=== PATIENT | female | born 1965 | race Caucasian/White ===

== ENCOUNTER 2017-11-06 17:09 | Emergency (ER) | payer OTHER ==
[~2017-11-06] VITALS: Ht 172.7 cm; Wt 110.0 kg
[2017-11-06 17:18] VITALS: BP 113/71; PULSE 104; RESP 16; TEMP 102.6
[2017-11-06] MEDS ORDERED: HYDR25TA5 PO (17:59)
[2017-11-06] MEDS ORDERED: BLAC540C PO (17:59)
[2017-11-06] MEDS ORDERED: SERO100T PO (17:59)
[2017-11-06] MEDS ORDERED: VERA200C PO (17:59)
[2017-11-06] MEDS ORDERED: NEXI40CA PO (17:59)
[2017-11-06] MEDS ORDERED: KETOROLAC TROMETHAMINE 30 MG/ML (IVP) VIAL IV PUSH ONE (18:15)
[2017-11-06] MEDS ORDERED: ACETAMINOPHEN 325 MG TAB PO ONE (18:15)
[2017-11-06] MEDS ORDERED: SODIUM CHLOR 0.9% 1000 ML INJ 1,000 ML IV ONE (18:15)
[2017-11-06 18:18] LABS: AUTOMATED NEUTROPHIL # 7.2 TH/MM3 (1.8-7.7); BASOPHIL % 0.4 % (0.0-2.0); EOSINOPHIL % 0.2 % (0.0-4.0); HEMATOCRIT 41.7 % (35.0-46.0); HEMOGLOBIN 14.2 GM/DL (11.6-15.3); LYMPH % 8.5 % (9.0-44.0); LYMPHOCYTE # 0.7 TH/MM3 (1.0-4.8); MEAN CELL VOLUME 90.5 FL (80.0-100.0); MEAN CORPUSCULAR HEMOGLOBIN 30.7 PG (27.0-34.0); MEAN PLATELET VOLUME 7.9 FL (7.0-11.0); MONO % 7.2 % (0.0-8.0); MONOCYTE # 0.6 TH/MM3 (0-0.9); NEUT % 83.7 % (16.0-70.0); PLATELET COUNT 306 TH/MM3 (150-450); RED BLOOD COUNT 4.61 MIL/MM3 (4.00-5.30); RED CELL DISTRIBUTION WIDTH 12.7 % (11.6-17.2); WHITE BLOOD COUNT 8.5 TH/MM3 (4.0-11.0)
--- NOTE | 2017-11-06 18:32 | RADRPT ---
EXAM DATE: 11/06/2017 6:29 PM EDT AGE/SEX: 51 years / Female INDICATIONS: Fever, cough, and shortness of breath. CLINICAL DATA: This is the patient's initial encounter. Patient reports that signs and symptoms have been present for 3 days and indicates a pain score of Nonresponsive. MEDICAL/SURGICAL HISTORY: Hypertension. None. COMPARISON: No prior [place] exams available for comparison. FINDINGS: Subsegmental airspace disease is identified in the right upper lobe. Left lung is clear. Heart and mediastinal structures are unremarkable. Osseous structures are intact. CONCLUSION: Right upper lobe airspace disease. Electronically signed by: Josse Hatch MD 11/06/2017 6:31 PM EDT
[2017-11-06] MEDS ORDERED: LEVOFLOXACIN 500 MG PREMIX INJ 100 ML IV ONE (18:45)
[2017-11-06 18:55] LABS: BICARBONATE 28.6 MEQ/L (21.0-32.0); CALCIUM 8.7 MG/DL (8.5-10.1); CREATININE 0.98 MG/DL (0.50-1.00); MAGNESIUM 1.8 MG/DL (1.5-2.5)
[2017-11-06 18:59] VITALS: TEMP 102.1
[2017-11-06] MEDS ORDERED: LEVA500T33 PO (19:18)
[2017-11-06] MEDS ORDERED: GUAISYP4 PO (19:28)
[2017-11-06 19:32] VITALS: PULSE 90; RESP 18; TEMP 100.9; O2SAT 98
--- NOTE | 2017-11-06 19:34 | PD ---
HPI Chief Complaint: ENT Complaint Time Seen by Provider: 17:37 (Antonio Nguyen) Time Seen by Provider: 17:37 (Manasa Maza DO) Travel History International Travel<30 days: No Contact w/Intl Traveler<30days: No Traveled to known affect area: No (Antonio Nguyen) History of Present Illness HPI 51-year-old female that presents to the ED for evaluation of cold-like symptoms and sore throat. Per patient started on Wednesday. Per patient since today she has been having sore throat, cough and congestion as well as body aches and fever. Per patient the fever and bodies have been getting worse for the past 24 hours. Per patient she is been taking [id number] remedies with some relief. Per patient she continued to have the fever and the symptoms which is what prompted her to come here. She denies any chest pain but states having a lot of congestion and cough. No shortness of breath. No urinary or bowel movement issues. No recent travel. Allergies to azithromycin and sertraline. Has been taking Tylenol for the fever with minimal relief. No abdominal pain. No bowel movement or urinary issues. Per patient she did got in contact with her coworker that was sick with cold-like symptoms and possible a flu. She did not get the flu shot herself. (Antonio Nguyen) PFSH Past Medical History Gastrointestinal Disorders: Yes (GERD) Hypertension: Yes Influenza Vaccination: No ?: Not LMP: post menopause Menopausal: Yes (Antonio Nguyen) Past Surgical History Tonsillectomy: Yes Other Surgery: Yes (breast reduction) (Antonio Nguyen) Social History Alcohol Use: Yes (Occasionally) Tobacco Use: No Substance Use: No (Antonio Nguyen) Allergies-Medications (Allergen,Severity, Reaction): Coded Allergies: sertraline (Verified Allergy, Intermediate, Hives, 11/06/17) azithromycin (Verified Allergy, Unknown, Hives, 11/06/17) Reported Meds & Prescriptions Reported Meds & Active Scripts Active Guaifenesin AC Liq (Guaifenesin-Codeine Liq) 100-10 Mg/5 Ml Syrp 5 Ml PO Q6H PRN Levaquin (Levofloxacin) 500 Mg Tablet 500 Mg PO DAILY 10 Days Reported Black Cohosh (Black Cohosh Extract) 40 Mg Cap 40 Mg PO DAILY Hydrochlorothiazide 25 Mg Tab 25 Mg PO DAILY Nexium (Esomeprazole DR) 40 Mg Capdr 40 Mg PO DAILY Seroquel (Quetiapine Fumarate) 100 Mg Tab 100 Mg PO HS Verapamil SR (Verapamil HCl) 200 Mg Cap 200 Mg PO HS (Manasa Maza DO) Review of Systems Except as stated in HPI: all other systems reviewed are Neg (Antonio Nguyen) Physical Exam Narrative GENERAL: Well-nourished, well-developed patient in no apparent distress. SKIN: Warm and dry. HEAD: Atraumatic. Normocephalic. EYES: Pupils equal and round reactive to light and accommodation. No scleral icterus. No injection or drainage. ENT: No nasal bleeding or discharge. Mucous membranes pink and moist. TMs are clear with no sign of infection or perforation. No mastoid tenderness. Ear canals are intact bilaterally. No lymphadenopathy. Nostril mucosa is red and moist with clear mucus noted. No sinus tenderness to palpation noted. Tonsils are not enlarged or swollen. No ulvua Deviation. Tongue is midline. NECK: Trachea midline. No JVD. No meningeal signs noted CARDIOVASCULAR: Regular rate and rhythm. RESPIRATORY: No accessory muscle use. Clear to auscultation. Breath sounds equal bilaterally. GASTROINTESTINAL: Abdomen soft, non-tender, nondistended. Hepatic and splenic margins not palpable. MUSCULOSKELETAL: Extremities without clubbing, cyanosis, or edema. No obvious deformities. NEUROLOGICAL: Awake and alert. No obvious cranial nerve deficits. Motor grossly within normal limits. Five out of 5 muscle strength in the arms and legs. Normal speech. PSYCHIATRIC: Appropriate mood and affect; insight and judgment normal. (Antonio Nguyen) Data Data Last Documented VS Vital Signs Date Time Temp Pulse Resp B/P (MAP) Pulse Ox O2 Delivery O2 Flow Rate FiO2 11/06/17 19:32 100.9 90 18 98 Room Air 11/06/17 17:18 113/71 (85) (Manasa Maza DO) Orders Orders Complete Blood Count With Diff (11/06/17 17:37) Basic Metabolic Panel (Bmp) (11/06/17 17:37) Blood Culture (11/06/17 17:37) Magnesium (Mg) (11/06/17 17:37) Group A Rapid Strep Screen (11/06/17 17:37) Influenzae A/B Antigen (11/06/17 17:37) Chest, Single Ap (11/06/17 17:37) Iv Access Insert/Monitor (11/06/17 17:37) Ecg Monitoring (11/06/17 17:37) Sodium Chlor 0.9% 1000 Ml Inj (Ns 1000 M (11/06/17 18:15) Acetaminophen (Tylenol) (11/06/17 18:15) Ketorolac Inj (Toradol Inj) (11/06/17 18:15) Strep Culture (Group A) (11/06/17 17:52) Levofloxacin 500 Mg Premix Inj (Levaquin (11/06/17 18:45) Ed Discharge Order (11/06/17 19:30) (Manasa Maza DO) Labs Laboratory Tests Test 11/06/17 17:40 White Blood Count 8.5 TH/MM3 Red Blood Count 4.61 MIL/MM3 Hemoglobin 14.2 GM/DL Hematocrit 41.7 % Mean Corpuscular Volume 90.5 FL Mean Corpuscular Hemoglobin 30.7 PG Mean Corpuscular Hemoglobin Concent 34.0 % Red Cell Distribution Width 12.7 % Platelet Count 306 TH/MM3 Mean Platelet Volume 7.9 FL Neutrophils (%) (Auto) 83.7 % Lymphocytes (%) (Auto) 8.5 % Monocytes (%) (Auto) 7.2 % Eosinophils (%) (Auto) 0.2 % Basophils (%) (Auto) 0.4 % Neutrophils # (Auto) 7.2 TH/MM3 Lymphocytes # (Auto) 0.7 TH/MM3 Monocytes # (Auto) 0.6 TH/MM3 Eosinophils # (Auto) 0.0 TH/MM3 Basophils # (Auto) 0.0 TH/MM3 CBC Comment DIFF FINAL Differential Comment Blood Urea Nitrogen 7 MG/DL Creatinine 0.98 MG/DL Random Glucose 107 MG/DL Calcium Level 8.7 MG/DL Magnesium Level 1.8 MG/DL Sodium Level 139 MEQ/L Potassium Level 3.3 MEQ/L Chloride Level 100 MEQ/L Carbon Dioxide Level 28.6 MEQ/L Anion Gap 10 MEQ/L Estimat Glomerular Filtration Rate 60 ML/MIN (Manasa Maza DO) MDM Medical Decision Making Medical Screen Exam Complete: Yes Emergency Medical Condition: Yes Medical Record Reviewed: Yes Interpretation(s) CBC & BMP Diagram 11/06/17 17:40 Calcium Level 8.7, Magnesium Level 1.8 Strep throat and influenza test were negative. Last Impressions Chest X-Ray 11/06/17 2427 Signed Impressions: CONCLUSION: Right upper lobe airspace disease. Differential Diagnosis Pneumonia versus bronchitis versus sinusitis versus pharyngitis versus strep throat versus influenza Narrative Course 51-year-old female that presents to the ED for evaluation of cold-like symptoms. Patient was properly examined and was found to have signs and symptoms consistent appears to be likely viral illness versus infection. Labs and imaging order. Labs and imaging positive for what appears to be early pneumonia. Blood work otherwise unremarkable. Fever and vitals improved after medications and fluids. Patient was started on Levaquin as she is allergic to azithromycin. She will be started on prescription for Levaquin. Given prescription for codeine medicine for cough. Follow-up with PCP. See ED if worsening symptoms. (Antonio Nguyen) Diagnosis Primary Impression: Pneumonia Qualified Codes: J18.1 - Lobar pneumonia, unspecified organism Patient Instructions: General Instructions Additional Instructions: Motrin and Tylenol for pain and fever. You can use [id number] antihistamine as well as well as Mucinex as needed for runny nose and congestion. Cough drops for cough as needed. Drink plenty of fluids. Follow-up with PCP. See ED for worsening symptoms. Med/Other Pt SpecificInfo: Prescription(s) given (Antonio Nguyen) Scripts Guaifenesin-Codeine Liq (Guaifenesin AC Liq) 100-10 Mg/5 Ml Syrp 5 ML PO Q6H Y for COUGH, #120 ML 0 Refills Prov: Manasa Maza DO 11/06/17 Levofloxacin (Levaquin) 500 Mg Tablet 500 MG PO DAILY for Infection for 10 Days, #10 TAB 0 Refills Prov: Manasa Maza DO 11/06/17 Disposition: 01 DISCHARGE HOME Condition: Stable Antonio Nguyen November 06, 2017 19:34 Manasa Maza DO November 07, 2017 07:57
== END 2017-11-06 20:21 | disposition home or self-care (01) ==
LOC: NEPC 17:09
DX: J18.1 Lobar pneumonia, unspecified organism (principal); I10 Essential (primary) hypertension; K21.9 Gastro-esophageal reflux disease without esophagitis; Z79.899 Other long term (current) drug therapy
CPT/HCPCS: 71045; 80048; 83735; 85025; 87040; 87081; 87804; 87880; 96365; 96375; 99284; J1885; J1956; J7030